=== PATIENT | male | born 1955 | race Caucasian/White ===

== ENCOUNTER 2016-11-27 15:23 | Emergency (ER) | payer BC ==
[~2016-11-27] VITALS: Ht 177.8 cm; Wt 116.2 kg
[2016-11-27 15:26] VITALS: BP 144/79
[2016-11-27] MEDS ORDERED: KETOROLAC 30 MG/1 ML ONE (16:15)
[2016-11-27] MEDS ORDERED: METHOCARBAMOL 750 MG TABLET ONE (16:15)
[2016-11-27] MEDS ORDERED: KETOROLAC 30 MG/1 ML IM ONE (16:30)
[2016-11-27] MEDS ORDERED: METHOCARBAMOL 750 MG TABLET PO ONE (16:30)
== END 2016-11-27 16:40 | disposition home or self-care (01) ==
LOC: ED 16:15
DX: S33.5XXA Sprain of ligaments of lumbar spine, initial encounter (principal); M47.896 Other spondylosis, lumbar region; X58.XXXA Exposure to other specified factors, initial encounter; Y93.89 Activity, other specified; Y92.89 Other specified places as the place of occurrence of the external cause; Y99.8 Other external cause status
CPT/HCPCS: 72110; 96372; 99284; J1885